=== PATIENT | male | born 1960 | race Caucasian/White ===

== ENCOUNTER → 2017-07-09 | Outpatient (CLI) | payer BC ==
[~2017-07-09] MED LIST: CELE200C PO; LACT1CAP35 PO; OMEP1CAP PO; PARO20TA98 PO; SIMV20TA PO
== END ==
LOC: STAR 09:15
PROVIDERS: ATTEND Orthopaedic Surgery
DX: Z02.9 Encounter for administrative examinations, unspecified (principal)

== ENCOUNTER 2017-07-16 11:02 | Day surgery (SDC) | payer BC ==
[~2017-07-16] VITALS: Ht 188 cm; Wt 89.2 kg
[~2017-07-16 11:02] MED LIST changes: +BUPIVACAINE/PF 0.5% ONE; +EPINEPHRINE 1 MG/ML, 1ML ONE; +LIDOCAINE 1%, 50ML ONE
[2017-07-16] MEDS ORDERED: LACTATED RINGERS 1,000 ML IV SCH (11:28)
[2017-07-16] MEDS ORDERED: LIDOCAINE 2%, 2ML ONE (11:30)
[2017-07-16 11:35] VITALS: BP 114/79
[2017-07-16] MEDS ORDERED: ROPIvacaine/PF 0.5%, 30 ML ONE (12:01)
[2017-07-16] MEDS ORDERED: EPINEPHRINE 1 MG/ML, 1ML ONE (12:01)
[2017-07-16] MEDS ORDERED: DEXAMETHASONE 4 MG/ML, 1ML ONE (12:21)
[2017-07-16] MEDS ORDERED: CEFAZOLIN 1,000 MG ONE (12:21)
[2017-07-16] MEDS ORDERED: PROPOFOL 10 MG/ML, 20ML ONE (12:21)
[2017-07-16] MEDS ORDERED: ONDANSETRON 2MG/ML, 2ML ONE (12:21)
[2017-07-16] MEDS ORDERED: SIMVASTATIN 20 MG TABLET PO SCH (21:00)
[2017-07-17] MEDS ORDERED: PAROXETINE 20 MG TABLET PO SCH (09:00)
[2017-07-17] MEDS ORDERED: OMEPRAZOLE PO SCH (09:00)
[2017-07-17] MEDS ORDERED: SODIUM BICARBONATE PO SCH (09:00)
== END 2017-07-16 15:10 ==
LOC: OUT 11:02
PROVIDERS: ATTEND Orthopaedic Surgery
DX: S83.232A Complex tear of medial meniscus, current injury, left knee, initial encounter (principal); S83.282A Other tear of lateral meniscus, current injury, left knee, initial encounter; S83.512A Sprain of anterior cruciate ligament of left knee, initial encounter; M94.262 Chondromalacia, left knee; M65.862 Other synovitis and tenosynovitis, left lower leg; K21.9 Gastro-esophageal reflux disease without esophagitis; E78.00 Pure hypercholesterolemia, unspecified; F41.9 Anxiety disorder, unspecified; X58.XXXA Exposure to other specified factors, initial encounter; Y93.89 Activity, other specified; Y92.89 Other specified places as the place of occurrence of the external cause; Y99.8 Other external cause status; Z98.890 Other specified postprocedural states
CPT/HCPCS: 29880; 29888; C1713; C1762; J0171; J0690; J1100; J2250; J2405; J2704; J2795; J3010; J3490; J7120